=== PATIENT | female | born 1965 | race Caucasian/White ===

== ENCOUNTER 2022-12-29 08:32 | Outpatient (CLI) | payer BC, SELFPAY | END 2022-12-29 08:33 | disposition home or self-care (01) | PROVIDERS: PCP Nurse Practitioner Family; Visit Provider Nurse Practitioner Family | DX: Z00.00 Encounter for general adult medical examination without abnormal findings (principal); E03.9 Hypothyroidism, unspecified; R10.12 Left upper quadrant pain; Z13.6 Encounter for screening for cardiovascular disorders | CPT/HCPCS: 80053; 80061; 82150; 83690; 84443; 85025 ==

== ENCOUNTER 2023-01-11 07:30 | Outpatient (CLI) | payer BC, SELFPAY ==
--- NOTE | 2023-01-11 08:00 | CRLHL7_ITS ---
For Patients: As a result of the Century Cures Act, medical imaging exams and procedure reports are released immediately into your electronic medical record. You may view this report before your referring provider. If you have questions, please contact your health care provider. Indication: Left upper quadrant pain Technique: Postcontrast CT abdomen and pelvis. 91 cc Isovue 370 intravenous contrast. Please note that all CT scans at this facility use dose modulation, iterative reconstruction, and/or weight-based dosing when appropriate to reduce radiation dose to as low as reasonably achievable. Comparison: None Findings: The lung bases are clear. No pleural effusion. No free intraperitoneal air. The liver and gallbladder are normal. Normal pancreas and spleen. Normal adrenal glands. There is a small cyst associated with the anterior right kidney measuring 2.9 cm. No hydronephrosis. Unremarkable left kidney. Ureters normal. Atherosclerotic changes. No adenopathy. Bladder normal. Uterus and ovaries are within normal limits. No bowel obstruction or free fluid. No abscess. No diverticulitis. Appendix normal. Facet degeneration lower lumbar spine. No fracture. Impression: No acute intra-abdominal or intrapelvic pathology. No cause for the left upper quadrant pain. Please note that all CT scans at this facility use dose modulation, iterative reconstruction, and/or weight-based dosing when appropriate to reduce radiation dose to as low as reasonably achievable. Dictated by Bryan Willoughby MD @ 01/11/2023 10:51:14 AM (Electronically Signed)
== END 2023-01-11 07:31 | disposition home or self-care (01) ==
LOC: CT 07:31
PROVIDERS: PCP Nurse Practitioner Family; Visit Provider Nurse Practitioner Family
DX: R10.12 Left upper quadrant pain (principal)
CPT/HCPCS: 74177; Q9967

== ENCOUNTER 2023-05-24 11:03 | Outpatient (CLI) | payer BC, SELFPAY ==
[2023-05-24 14:32] LABS: Strep A DNA Probe* NOT DETECTED (Not Detectd)
== END 2023-05-24 11:04 | disposition home or self-care (01) ==
LOC: KYNREF 11:03
PROVIDERS: PCP Nurse Practitioner Family; Visit Provider Nurse Practitioner Family
DX: J02.9 Acute pharyngitis, unspecified (principal)
CPT/HCPCS: 87651

== ENCOUNTER 2024-05-09 08:22 | Outpatient (CLI) | payer BC, SELFPAY | END 2024-05-09 08:23 | disposition home or self-care (01) | PROVIDERS: PCP Nurse Practitioner Family; Visit Provider Nurse Practitioner Family | DX: E78.5 Hyperlipidemia, unspecified (principal); E03.9 Hypothyroidism, unspecified; Z13.0 Encounter for screening for diseases of the blood and blood-forming organs and certain disorders involving the immune mechanism; Z13.228 Encounter for screening for other metabolic disorders | CPT/HCPCS: 80053; 80061; 84443; 85025 ==

== ENCOUNTER 2024-06-13 08:38 | Outpatient (CLI) | payer BC, SELFPAY ==
--- NOTE | 2024-06-13 08:45 | CRLHL7_ITS ---
For Patients: As a result of the Cures Act, medical imaging exams and procedure reports are released immediately into your electronic medical record. You may view this report before your referring provider. If you have questions, please contact your health care provider. BILATERAL SCREENING MAMMOGRAM WITH COMPUTER-AIDED DETECTION AND TOMOSYNTHESIS TECHNIQUE: CC and MLO views were obtained. These mammographic images have been obtained using full-field digital technique. These mammographic images were interpreted with the benefit of computer-aided detection. Breast Tomosynthesis was used in this interpretation. COMPARISON FILM: 12/02/21, 09/28/17, 06/06/16. FINDINGS: The breasts are almost entirely fatty IMPRESSION: There is no radiographic evidence for malignancy. ASSESSMENT: BI-RADS Category 1: Negative RECOMMENDATION: Routine screening mammogram in 1 year. A lay language report of this examination will be provided to the patient. Bryan Willoughby M.D. Diagnostic Radiologist [email or web address] Transcribed: 3:48 [email or web address].[email or web address] [email or web address]/Dictated by: Bryan Willoughby MD @ 06/17/2024 9:51:00 AM (Electronically Signed)
== END 2024-06-13 08:39 | disposition home or self-care (01) ==
LOC: MAMMO 08:38
PROVIDERS: PCP Nurse Practitioner Family; Visit Provider Nurse Practitioner Family
DX: Z12.31 Encounter for screening mammogram for malignant neoplasm of breast (principal)
CPT/HCPCS: 77063; 77067

== ENCOUNTER 2025-05-29 08:27 | Outpatient (CLI) | payer BC, SELFPAY | END 2025-05-29 08:28 | disposition home or self-care (01) | PROVIDERS: PCP Nurse Practitioner Family; Visit Provider Nurse Practitioner Family | DX: E03.9 Hypothyroidism, unspecified (principal); E78.5 Hyperlipidemia, unspecified; Z13.1 Encounter for screening for diabetes mellitus; Z13.0 Encounter for screening for diseases of the blood and blood-forming organs and certain disorders involving the immune mechanism | CPT/HCPCS: 80053; 80061; 84436; 84443; 84480; 85025 ==